=== PATIENT | male | born 1950 | race Caucasian/White ===

== ENCOUNTER 2020-01-03 00:21 | Outpatient (CLI) | payer MEDICARE, OTHER, SELFPAY ==
--- NOTE | 2020-01-03 | DI.NM_ITS ---
APPROVED REPORT Exam: Exercise Treadmill Patient Location: Out-Patient Room/Bed: Stress Nurse: Luna Dee RN BMI: 26.72 Baseline Rhythm: Sinus Bradycardia Indications: Chest pain, pt describes as twinges. He reports experiences chest pain twinges and acid reflux problems for years although symptoms have been worse lately. Pt is s/p 4 vessel CABG - 10 year s ago. Medical History Medical History: Angina, CAD s/p CABG, COPD, Depression, HTN, Hyperlipidemia Cardiac Medications: Aspirin. Atorvastatin. Losartan. Nitroglycerin. , Allergies: IVP dye. Augmentin. Marcodantin. Mirapex. Oxycodone. Terbidafine. Cardiac Risk Factors: HTN, Hyperlipidemia, FHX of CAD, Asthma, COPD Previous Cardiac Procedures: CABG Pretest Chest Pain Characteristics: Non-exertional Chest pain Exercise History: Physically active Lung Sounds: Clear to auscultation Heart Sounds: Regular Stress Test Details Test: Exercise stress testing was performed using a Medardo protocol. Nuclear Acquisition: Rest Tc-99m/Stress Tc-99m 1 day Rest Isotope: Tc-99m Sestamibi. Dose: 11.5 Date: 01/03/2020 Injection Time: 1045 Stress Isotope: Tc-99m Sestamibi. Dose: 36.0 Date: 01/03/2020 Injection Time: 1240 HR Resting HR Supine: 57 bpm Max Heart Rate (APMHR): 151 bpm Resting HR Standin bpm Target HR (85% APMHR): 128 bpm Max HR Achieved: 143 bpm % of APMHR: 94 Recovery HR: 90 bpm HR response to stress: Normal HR response to stress BP Resting BP Supine: 150/80 mmHg Resting BP Standin/80 mmHg Max BP: 180/82 mmHg Recovery BP: 150/80 mmHg BP response to stress: Normal blood pressure response to stress. ECG Resting ECG: Sinus Bradycardia Stress ECG: Sinus Tachycardia ST Change: No significant ST segment changes Arrhythmia: None Recovery ECG: Sinus Rhythm Recovery ST Change: No significant ST segment changes Recovery Arrhythmia: None Clinical Reason for Termination: Fatigue Stress Symptoms: General Fatigue Exercise duration: 10 min29 sec Highest Stage Reached: Stage 4: 4.2 mph at 16% grade. Exercise capacity: 12.63 METs Functional Capacity: Above average capacity Scale: Active Stress ECG Conclusion 1. Good exercise tolerance of 12.63 minutes, limited by fatigue 2. Normal hemodynamic response to exercise 3. Resting electrocardiogram is within normal limits. Electrocardiographically there was no evidence of myocardial ischemia at 94% of predicted heart rate for age 4. There were no dysrhythmias Protocol Used: Medardo Protocol Stress Test Summary STAGE Time (mins) Speed (mph) Grade (%) HR BP SYMPTOMS METS Supine 57 150/80 Standing 58 150/80 1 3 1.7 10 98 152/80 4.6 2 6 2.5 12 113 162/78 7 3 9 3.4 14 143 170/80 10.2 4 12 4.2 16 143 12.9 1 min recovery 118 180/82 3 min recovery 92 160/70 6 min recovery 90 150/80 MPI Conclusion Normal myocardial perfusion without evidence of ischemia or prior infarction Radiologist Interpretation Radiologist agrees with Project Drilling Engineer's Interpretation. Radiologist Interpretation by: Terri Black MD Interpretation Date/Time: 01/04/2020 09:53:44
== END 2020-01-03 00:41 ==
PROVIDERS: PCP Internal Medicine; Visit Provider Internal Medicine Interventional Cardiology
DX: R07.89 Other chest pain (principal); R00.1 Bradycardia, unspecified; Z95.1 Presence of aortocoronary bypass graft; I10 Essential (primary) hypertension; J44.9 Chronic obstructive pulmonary disease, unspecified
CPT/HCPCS: 78452; 93016; 93018; 93017

== ENCOUNTER 2021-09-23 02:44 | Outpatient (CLI) | payer MEDICARE, SELFPAY ==
[2021-09-23 11:29] LABS: Source Nasal/Nares
[2021-09-23 17:21] LABS: COVID-19 PCR Negative (Negative)
== END 2021-09-23 02:45 | disposition home or self-care (01) ==
LOC: LBO 02:44
PROVIDERS: PCP Internal Medicine; Visit Provider Ophthalmology
DX: Z20.822 Contact with and (suspected) exposure to COVID-19 (principal); Z01.818 Encounter for other preprocedural examination
CPT/HCPCS: 87635

== ENCOUNTER 2021-09-25 11:34 | Day surgery (SDC) | payer MEDICARE, SELFPAY ==
--- NOTE | 2021-09-25 07:50 | ANES.PREOP_ITS ---
General Info Height: 5 ft 9 in Weight: 80.739 kg Body Mass Index (BMI): 26.2 Surgical Procedure: Operation Date: 09/25/21 15:40 Proposed Procedures Side Surgeon p Cataract Extraction with IOL Implant Home Murillo MD Meds Allergies and Home Medications Allergies Allergy/AdvReac Type Severity Reaction Status Date / Time Iodinated Contrast Media Allergy Severe Other (See Unverified 09/23/21 11:39 Comment) terbinafine Allergy Intermediate Other (See Unverified 09/23/21 11:39 Comment) nitrofurantoin Allergy Unknown Other (See Unverified 09/23/21 11:39 [From Macrodantin] Comment) amoxicillin [From Augmentin] AdvReac Intermediate Other (See Unverified 09/23/21 11:39 Comment) clavulanic acid AdvReac Intermediate Other (See Unverified 09/23/21 11:39 [From Augmentin] Comment) oxycodone AdvReac Intermediate Other (See Unverified 09/23/21 11:39 Comment) pramipexole [From Mirapex] AdvReac Intermediate Dizziness/L Unverified 09/23/21 11:39 ighthead Home Medication Medication Instructions Recorded acetaminophen [Acetaminophen Extra 1,000 mg PO DAILY PRN 09/23/21 Strength] aspirin 81 mg PO DAILY 09/23/21 atorvastatin 80 mg PO DAILY 09/23/21 citalopram 20 mg PO DAILY 09/23/21 esomeprazole magnesium 20 mg PO BID 09/23/21 fluticasone propion-salmeterol 2 puff INHALATION BID 09/23/21 [Advair HFA] gabapentin 300 mg PO HS 09/23/21 levalbuterol tartrate 2 puff INHALATION Q4H PRN 09/23/21 loratadine 10 mg PO DAILY 09/23/21 losartan 25 mg PO DAILY 09/23/21 nitroglycerin 0.4 mg SUBLINGUAL DIRECTED 09/23/21 Current Visit Medications: Current Medications Generic Name Dose Route Start Last Admin Trade Name Freq PRN Reason Stop Dose Admin Acetaminophen 1,000 mg 09/25/21 06:00 Acetaminophen 500 Mg Tab PO Q4H PRN PRN Miscellaneous Medication 0 ml 09/25/21 06:00 Prednisolone 1%, Moxifloxacin 0.5%, Nepafenac 0.1% 5ml Btl OS DIRECTED [facility] Miscellaneous Medication 0 ml 09/25/21 06:00 Tropicam./Phenyleph. (1/2.5%) 5 Ml Btl OS DIRECTED BOBBY Tetracaine HCl 0 ml 09/25/21 06:00 Tetracaine 0.5% 4 Ml Btl OS DIRECTED [facility] PFSH Active Problems Active Problems: Problem Status Onset Code Posterior subcapsular age-related cataract of left eye H25.042 Nuclear sclerotic cataract of left eye H25.12 Medical History Medical History (Updated 09/24/21 @ 19:44 by Home Murillo MD) Anxiety BPH loc w urin obs/LUTS Chronic ischemic heart disease COPD (chronic obstructive pulmonary disease) GERD (gastroesophageal reflux disease) History of kidney stones HLD (hyperlipidemia) Hypertensive disorder Overweight RLS (restless legs syndrome) Snoring Surgical History Surgical History (Updated 09/23/21 @ 11:35 by Patrice Carter) Hx of CABG 11 years ago-F/U with tobacco stripper 01/2020 Tobacco Smoking/Tobacco Use Status: Never Alcohol Alcohol Intake: current Alcohol intake frequency: holidays/special occasions only Alcohol type: wine Substance Use Substance use: Never Substance use type: does not use Vital Signs and Lab Results Lab Results Blood Type / Crossmatch: No Data to Display Complete Blood Count: No Data to Display Complete Metabolic Panel: No Data to Display Liver Function Panel: No Data to Display Coagulation Panel: No Data to Display Cardiac Panel: No Data to Display Arterial Blood Gas: No Data to Display Venous Blood Gas: No Data to Display Pancreas Panel: No Data to Display Thyroid Panel: No Data to Display Infectious Disease: Coronavirus (COVID-19)(PCR) Negative (Negative) 09/23/21 10:04 09/23/21 Coronavirus 2019 Source Nasal/Nares 09/23/21 10:04 09/23/21 Blood Cultures: No Data to Display Toxicology Panel: No Data to Display Imaging and Studies Imaging and Studies Stress Test Summary: Stress ECG Conclusion 1. Good exercise tolerance of 12.63 minutes, limited by fatigue 2. Normal hemodynamic response to exercise 3. Resting electrocardiogram is within normal limits. Electrocardiographically there was no evidence of myocardial ischemia at 94% of predicted heart rate for age 4. There were no dysrhythmias Anesthesia Assessment and Plan Anesthesia History Personal History: No History of Anesthesia Complications Family History: No Family History of Anesthesia Complications Exercise Tolerance Exercise Tolerance: Metabolic Equivalents>4 Pertinent Negatives Pertinent Negatives: No Symptoms of GERD Cardiac & Pulmonary Exam Cardiac Exam: Normal S1/S2 Heart Sounds Pulmonary Exam: Clear Bilateral Breath Sounds Implantable Cardiac Device Does patient have a Pacemaker or an ICD?: No Airway Exam Known Difficult Airway: No Mallampati Class: 2 Mouth Opening: Normal (> 3cm) Thyromental Distance: Greater than 3 cm Neck Range of Motion: Full ROM Neck Circumference: Normal Teeth Condition: Normal Dentition ASA Classification ASA Score: ASA 3 Emergency Case?: No NPO Status NPO Status: NPO Clears >2 hours, Solids >8 hours Anesthesia Plan Resuscitation Status: Full Code Anesthesia Technique: MAC Anesthesia Airway Planned: Natural Airway Monitors Used: Standard Monitors
[2021-09-25 12:38] VITALS: BP 155/79; PULSE 54; RESP 16; TEMP 36.4; O2SAT 98
[2021-09-25] MEDS: Tropicam./Phenyleph. (1/2.5%) 5 ML BTL OS ×3 (12:45→12:55)
--- NOTE | 2021-09-25 13:31 | ANES.PREOP_ITS ---
General Info Date of Service Date Performed: 09/25/21 Height: 5 ft 9 in Weight: 82.6 kg Body Mass Index (BMI): 26.9 Surgical Procedure: Operation Date: 09/25/21 15:40 Proposed Procedures Side Surgeon p Cataract Extraction with IOL Implant Home Murillo MD Meds Allergies and Home Medications Allergies Allergy/AdvReac Type Severity Reaction Status Date / Time Iodinated Contrast Media Allergy Severe Other (See Unverified 09/23/21 11:39 Comment) terbinafine Allergy Intermediate Other (See Unverified 09/23/21 11:39 Comment) nitrofurantoin Allergy Unknown Other (See Unverified 09/23/21 11:39 [From Macrodantin] Comment) amoxicillin [From Augmentin] AdvReac Intermediate Other (See Unverified 09/23/21 11:39 Comment) clavulanic acid AdvReac Intermediate Other (See Unverified 09/23/21 11:39 [From Augmentin] Comment) oxycodone AdvReac Intermediate Other (See Unverified 09/23/21 11:39 Comment) pramipexole [From Mirapex] AdvReac Intermediate Dizziness/L Unverified 09/23/21 11:39 ighthead Home Medication Medication Instructions Recorded acetaminophen [Acetaminophen Extra 1,000 mg PO DAILY PRN 09/23/21 Strength] aspirin 81 mg PO DAILY 09/23/21 atorvastatin 80 mg PO DAILY 09/23/21 citalopram 20 mg PO DAILY 09/23/21 esomeprazole magnesium 20 mg PO BID 09/23/21 fluticasone propion-salmeterol 1 puff INHALATION QAM 09/23/21 [Advair HFA] gabapentin 300 mg PO HS 09/23/21 levalbuterol tartrate 2 puff INHALATION Q4H PRN 09/23/21 loratadine 10 mg PO DAILY 09/23/21 losartan 25 mg PO DAILY 09/23/21 nitroglycerin 0.4 mg SUBLINGUAL DIRECTED 09/23/21 Current Visit Medications: Current Medications Generic Name Dose Route Start Last Admin Trade Name Freq PRN Reason Stop Dose Admin Acetaminophen 1,000 mg 09/25/21 06:00 Acetaminophen 500 Mg Tab PO Q4H PRN PRN Miscellaneous Medication 0 ml 09/25/21 06:00 Prednisolone 1%, Moxifloxacin 0.5%, Nepafenac 0.1% 5ml Btl OS DIRECTED BOBBY Miscellaneous Medication 0 ml 09/25/21 06:00 09/25/21 12:55 Tropicam./Phenyleph. (1/2.5%) 5 Ml Btl OS 1 drp DIRECTED BOBBY Administration Tetracaine HCl 0 ml 09/25/21 06:00 Tetracaine 0.5% 4 Ml Btl OS DIRECTED BOBBY PFSH Active Problems Active Problems: Problem Status Onset Code Nuclear sclerotic cataract of left eye H25.12 Posterior subcapsular age-related cataract of left eye H25.042 Medical History Medical History Anxiety BPH loc w urin obs/LUTS Chronic ischemic heart disease COPD (chronic obstructive pulmonary disease) GERD (gastroesophageal reflux disease) History of kidney stones HLD (hyperlipidemia) Hypertensive disorder Overweight RLS (restless legs syndrome) Snoring Surgical History Surgical History (Updated 09/25/21 @ 12:31 by Mitchell Roberts) Hx of bilateral inguinal hernia repair Hx of CABG 11 years ago-F/U with director of fundraising 01/2020 Tobacco Smoking/Tobacco Use Status: Never Alcohol Alcohol Intake: current Alcohol intake frequency: holidays/special occasions only Alcohol type: wine Substance Use Substance use: Never Substance use type: does not use Vital Signs and Lab Results Vital Signs Most Recent Vital Signs in EMR: Most Recent Vital Signs Temp Pulse Resp BP Pulse Ox 36.4 C L 54 L 16 155/79 H 98 09/25/21 12:38 09/25/21 12:38 09/25/21 12:38 09/25/21 12:38 09/25/21 12:38 Lab Results Blood Type / Crossmatch: No Data to Display Complete Blood Count: No Data to Display Complete Metabolic Panel: No Data to Display Liver Function Panel: No Data to Display Coagulation Panel: No Data to Display Cardiac Panel: No Data to Display Arterial Blood Gas: No Data to Display Venous Blood Gas: No Data to Display Pancreas Panel: No Data to Display Thyroid Panel: No Data to Display Infectious Disease: Coronavirus (COVID-19)(PCR) Negative (Negative) 09/23/21 10:04 09/23/21 Coronavirus 2019 Source Nasal/Nares 09/23/21 10:04 09/23/21 Blood Cultures: No Data to Display Toxicology Panel: No Data to Display Imaging and Studies Imaging and Studies Stress Test Summary: Stress ECG Conclusion 1. Good exercise tolerance of 12.63 minutes, limited by fatigue 2. Normal hemodynamic response to exercise 3. Resting electrocardiogram is within normal limits. Electrocardiographically there was no evidence of myocardial ischemia at 94% of predicted heart rate for age 4. There were no dysrhythmias Anesthesia Assessment and Plan Anesthesia History Personal History: No History of Anesthesia Complications Family History: No Family History of Anesthesia Complications Exercise Tolerance Exercise Tolerance: Metabolic Equivalents>4 Pertinent Negatives Pertinent Negatives: No Symptoms of GERD, No Major Cardiovascular Symptoms or Complaints, No Major Pulmonary Symptoms or Complaints and No History of CVA/TIA Cardiac & Pulmonary Exam Cardiac Exam: Normal S1/S2 Heart Sounds Pulmonary Exam: Clear Bilateral Breath Sounds Implantable Cardiac Device Does patient have a Pacemaker or an ICD?: No Airway Exam Known Difficult Airway: No Mallampati Class: 2 Mouth Opening: Normal (> 3cm) Thyromental Distance: Greater than 3 cm Neck Range of Motion: Full ROM Neck Circumference: Normal Teeth Condition: Normal Dentition ASA Classification ASA Score: ASA 2 Emergency Case?: No NPO Status NPO Status: NPO Clears >2 hours, Solids >8 hours Anesthesia Plan Resuscitation Status: Full Code Anesthesia Technique: MAC Anesthesia Airway Planned: Natural Airway Monitors Used: Standard Monitors
[2021-09-25 13:34] VITALS: BMI 26.9
[2021-09-25] MEDS: Tetracaine 0.5% 4 ML BTL OS (13:40)
[2021-09-25] MEDS: Lidocaine 2% Jelly 6 ML SYR (13:41)
[2021-09-25] MEDS: Lidocaine 1% Pres-Free 5 ML VIAL (13:48)
[2021-09-25] MEDS: Balanced Salt Soln.-PLUS 500 ML BAG (13:52)
[2021-09-25] MEDS: Duovisc Viscoelastic System EACH 1 EACH (13:53)
[2021-09-25] MEDS: Povidone-Iodine Ophth 30 ML BTL (13:54)
[2021-09-25 14:10] VITALS: BP 138/85; PULSE 59; RESP 16; TEMP 36.5; O2SAT 98
--- NOTE | 2021-09-25 14:11 | W.PM.DSUDISC ---
Discharge Plan Disposition Patient Disposition: HOME Condition: Good Discharge Details Attending Provider: Home Murillo Primary Care Provider: Eladio Osorio Home Meds and New Rx's Prescriptions: No Action atorvastatin 80 mg tablet 80 mg PO DAILY RF: 0 acetaminophen [Acetaminophen Extra Strength] 500 mg Tablet 1,000 mg PO DAILY PRNRF: 0 aspirin 81 mg Capsule,Delayed Release(Dr/Ec) 81 mg PO DAILY RF: 0 citalopram 20 mg tablet 20 mg PO DAILY RF: 0 losartan 25 mg tablet 25 mg PO DAILY RF: 0 nitroglycerin 0.4 mg tablet, sublingual 0.4 mg sublingual DIRECTED RF: 0 gabapentin 300 mg capsule 300 mg PO HS RF: 0 loratadine 10 mg Tablet 10 mg PO DAILY RF: 0 esomeprazole magnesium 20 mg capsule,delayed release(DR/EC) 20 mg PO BID RF: 0 levalbuterol tartrate 45 mcg/actuation HFA aerosol inhaler 2 puff INHALATION Q4H PRNRF: 0 Advair HFA 230-21 mcg/actuation HFA aerosol inhaler 1 puff inhalation QAM RF: 0 Discharge Instructions Stand Alone Forms: Post-op Topical Cataract, Alisha Jo (DSU) Discharge Orders Discharge Orders: Discharge Order (Routine); Ordered 09/25/21 Ordered By: Home Mruillo DS: Diagnosis Discharge Diagnosis (1) Nuclear sclerotic cataract of left eye: Status: Resolved (2) Posterior subcapsular age-related cataract of left eye: Status: Resolved
--- NOTE | 2021-09-25 14:12 | W.PM.OP ---
Date of service: 09/25/21 Time of Service: 14:12 Operative Note Operative Note DATE OF PROCEDURE: 09/25/21 PRE-OP DIAGNOSIS: Nuclear/posterior subcapsular cataract, left eye POST-OP DIAGNOSIS: same PROCEDURE: Cataract extraction using phacoemulsification with intraocular lens implant, left eye SURGEON: Home Murillo ANESTHESIA TYPE: Local By Surgeon and MAC Refer to Anesthesia Record PATHOLOGY: none sent COMPLICATIONS: None Patient was transported to: same day Patient's condition: stable Implants: Andrew [employer] Andrew / [employer] Tecnis [id number] Indications: Progressive decreased vision due to cataract, left eye Procedure Description: CATARACT SURGERY OPERATIVE REPORT PREOPERATIVE DIAGNOSIS: 1. Nuclear/posterior subcapsular cataract, left eye POSTOPERATIVE DIAGNOSIS: Same OPERATION: 1. Cataract extraction using phacoemulsification with posterior chamber intraocular lens implant, left eye. IOL: IOL Sole Conforming Machine Operator/Model: Andrew & Andrew / CAROLYN Tecnis [id number] IOL Power: + 16.0 diopters IOL Serial Number: [id number] Optic Diameter: 6.0 mm Haptic/Overall Diameter: 13.0 mm PHACO INFO: Wilfrido Bravoaviaurion Vision System with OZil and Active Fluidics Cumulative Dispersed Energy (CDE): 14.21 seconds SURGEON: Home Murillo MD, VIKKI ANESTHESIA: Monitored A [facility] (MAC), with local sub-tenon's anesthetic infiltration COMPLICATIONS: None SPECIMENS: None INDICATIONS FOR PROCEDURE: The patient is a 70-year-old gentleman with history of diminished visual acuity in his left eye secondary to the development of nuclear/posterior subcapsular cataract. He is significantly symptomatic that he desires cataract surgery and attempt to improve and maximize his vision. The option of cataract surgery was offered to the patient and he wished to proceed. PROCEDURE: The correct surgical eye was identified and marked as the left eye and the pupil was dilated in the preoperative area using mydriatics and cycloplegics. The dilated pupil size was 8.0 mm. He elected to proceed without oral sedation.. The patient was brought to the operating room where cardiopulmonary monitoring was instituted and surgical time-out was performed, confirming the correct operative eye and IOL power. Topical anesthesia was administered and ophthalmic povidone-iodine 5% was instilled into the conjunctival fornices. Lidocaine gel was applied to the cornea and the kami-ocular area was prepped with Betadine 10% solution and draped in the usual sterile fashion for intraocular surgery, including an aperture drape. A Tegaderm transparent film dressing was cut in half and used to cover the lashes and lid margins. Care was taken to sequester the lashes and lid margins under the Tegaderm dressing. A lid speculum was placed between the lids of the operative eye and the Josefina-Tarun operating microscope was maneuvered into position. Lexy scissors were then used to make a conjunctival buttonhole approximately 6mm posterior to the limbus in the inferonasal quadrant. Blunt dissection was carried out to expose bare sclera, and a blunt-tipped sub-tenon?s anesthesia cannula was introduced and passed posteriorly along the globe where non-preserved plain lidocaine was injected into posterior sub-Tenon?s space. A sideport knife was used to make a paracentesis port superiorly/superiortemporally. Intraocular phenylephrine/lidocaine was injected int the anterior chamber.. The anterior chamber was filled with viscoelastic. A 2.4mm keratome knife was used to create a half-thickness groove at the limbus and then to construct a three-plane near-clear corneal tunnel extending 2.0mm into clear cornea at the 3:00 position. A flap was raised on the anterior capsule and capsulorhexis forceps were used to complete a continuous curvilinear capsulorhexis of 5.5 mm. Balanced salt solution was then used to perform cortical cleaving hydrodissection and nuclear hydrodelineation until the lens could be freely rotated within the capsular bag. The lens nucleus was then disassembled and removed within the capsular bag and iris plane using phacoemulsification. Residual cortical material was removed using the 45-degree angled silicone I/A tip with 0.3mm port. The posterior capsule was carefully polished to remove as much residual lens epithelial cells as safely possible. The capsular bag was then inflated and the anterior chamber deepened with viscoelastic. The lens implant described above was inserted into the capsular bag using the CAROLYN [place] Injector. A Kuglen hook was used to dial the IOL into position. Residual viscoelastic was then removed first from posterior to the IOL, then from the anterior chamber using the I/A handpiece. The lens implant was noted to center nicely within the capsular bag. The incisions were stromally hydrated, and the anterior chamber was reformed using BSS. Then 0.5cc of moxifloxacin 1.0mg/ml were injected into the capsular bag and anterior chamber. The incisions were checked with a Weck spear and found to be secure. Several drops of ophthalmic povidone-iodine 5% were then applied to the eye followed by two drops of Imprimis combination prednisolone/moxifloxacin/nepafenac solution. The drapes were removed and a clear plastic protective eye shield was placed over the eye. The patient was then returned to Same Day Surgery in stable condition.
--- NOTE | 2021-09-25 14:24 | W.ANESPOSTOP ---
Postoperative Evaluation Date, Time and Location Date Performed: 09/25/21 Time Performed: 14:24 Patient Location: Day Surgery Unit Vital Signs Most Recent Imported Vital Signs: Most Recent Vital Signs Temp Pulse Resp BP Pulse Ox 36.5 C 59 L 16 138/85 98 09/25/21 14:10 09/25/21 14:10 09/25/21 14:10 09/25/21 14:10 09/25/21 14:10 Pain Score Most Recent Pain Score: Most Recent Pain Score Pain Level 0 09/25/21 14:10 Assessment Mental Status: Awake (Alert & Oriented to Patient Baseline) Airway and Respiratory Function: Patent airway with normal (patient baseline) respiratory exam Cardiovascular Function: Hemodynamically Stable Hydration Status: Adequately Hydrated Nausea & Vomiting: No Nausea or Vomiting Pain: Pt. Denies Any Pain Peripheral Nerve Block: Patient did not receive a nerve block
== END 2021-09-25 14:30 | disposition home or self-care (01) ==
PROVIDERS: PCP Internal Medicine; Visit Provider Ophthalmology
PROC: (CPT 66984; principal; 2021-09-25 15:30)
DX: H25.12 Age-related nuclear cataract, left eye (principal); J44.9 Chronic obstructive pulmonary disease, unspecified; I10 Essential (primary) hypertension
CPT/HCPCS: 66984; V2632

== ENCOUNTER 2021-10-14 02:19 | Outpatient (CLI) | payer MEDICARE, SELFPAY ==
[2021-10-14 12:17] LABS: Source Nasal/Nares
[2021-10-14 14:35] LABS: COVID-19 PCR Negative (Negative)
== END 2021-10-14 02:20 | disposition home or self-care (01) ==
LOC: LBO 02:19
PROVIDERS: PCP Internal Medicine; Visit Provider Ophthalmology
DX: Z20.822 Contact with and (suspected) exposure to COVID-19 (principal); Z01.818 Encounter for other preprocedural examination
CPT/HCPCS: 87635

== ENCOUNTER 2021-10-16 07:30 | Day surgery (SDC) | payer MEDICARE, SELFPAY ==
[2021-10-16 07:53] VITALS: BP 143/79; PULSE 57; RESP 16; TEMP 36.7; O2SAT 98
[2021-10-16] MEDS: Tropicam./Phenyleph. (1/2.5%) 5 ML BTL OD ×3 (08:03→08:13)
--- NOTE | 2021-10-16 08:27 | ANES.PREOP_ITS ---
General Info Date of Service Date Performed: 10/16/21 Height: 5 ft 9 in Weight: 84.4 kg Body Mass Index (BMI): 27.4 Surgical Procedure: Operation Date: 10/16/21 09:40 Proposed Procedures Side Surgeon p Cataract Extraction with IOL Implant Right Home Murillo MD Meds Allergies and Home Medications Allergies Allergy/AdvReac Type Severity Reaction Status Date / Time Iodinated Contrast Media Allergy Severe Other (See Verified 10/16/21 07:48 Comment) terbinafine Allergy Intermediate Other (See Verified 10/16/21 07:48 Comment) nitrofurantoin Allergy Unknown Other (See Verified 10/16/21 07:48 [From Macrodantin] Comment) amoxicillin [From Augmentin] AdvReac Intermediate Other (See Verified 10/16/21 07:48 Comment) clavulanic acid AdvReac Intermediate Other (See Verified 10/16/21 07:48 [From Augmentin] Comment) oxycodone AdvReac Intermediate Other (See Verified 10/16/21 07:48 Comment) pramipexole [From Mirapex] AdvReac Intermediate Dizziness/L Verified 10/16/21 07:48 ighthead Home Medication Medication Instructions Recorded acetaminophen [Acetaminophen Extra 1,000 mg PO DAILY PRN 09/23/21 Strength] aspirin 81 mg PO DAILY 09/23/21 atorvastatin 80 mg PO DAILY 09/23/21 citalopram 20 mg PO DAILY 09/23/21 esomeprazole magnesium 20 mg PO BID 09/23/21 fluticasone propion-salmeterol 1 puff INHALATION QAM 09/23/21 [Advair HFA] gabapentin 300 mg PO HS 09/23/21 levalbuterol tartrate 2 puff INHALATION Q4H PRN 09/23/21 loratadine 10 mg PO DAILY 09/23/21 losartan 25 mg PO DAILY 09/23/21 nitroglycerin 0.4 mg SUBLINGUAL DIRECTED 09/23/21 Current Visit Medications: Current Medications Generic Name Dose Route Start Last Admin Trade Name Freq PRN Reason Stop Dose Admin Acetaminophen 1,000 mg 10/16/21 06:00 Acetaminophen 500 Mg Tab PO Q4H PRN PRN Miscellaneous Medication 0 ml 10/16/21 06:00 Prednisolone 1%, Moxifloxacin 0.5%, Nepafenac 0.1% 5ml Btl OD DIRECTED BOBBY Miscellaneous Medication 0 ml 10/16/21 06:00 10/16/21 08:13 Tropicam./Phenyleph. (1/2.5%) 5 Ml Btl OD 1 drp DIRECTED BOBBY Administration Tetracaine HCl 0 ml 10/16/21 06:00 Tetracaine 0.5% 4 Ml Btl OD DIRECTED BOBBY PFSH Active Problems Active Problems: Problem Status Onset Code Nuclear sclerotic cataract of left eye H25.12 Posterior subcapsular age-related cataract of left eye H25.042 Medical History Medical History Anxiety BPH loc w urin obs/LUTS Chronic ischemic heart disease COPD (chronic obstructive pulmonary disease) GERD (gastroesophageal reflux disease) History of kidney stones HLD (hyperlipidemia) Hypertensive disorder Overweight RLS (restless legs syndrome) Snoring Surgical History Surgical History Hx of bilateral inguinal hernia repair Hx of CABG 11 years ago-F/U 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 Tobacco Smoking/Tobacco Use Status: Never Alcohol Alcohol Intake: current Alcohol intake frequency: holidays/special occasions only Alcohol type: wine Substance Use Substance use: Never Substance use type: does not use Vital Signs and Lab Results Vital Signs Most Recent Vital Signs in EMR: Most Recent Vital Signs Temp Pulse Resp BP Pulse Ox 36.7 C 57 L 16 143/79 H 98 10/16/21 07:53 10/16/21 07:53 10/16/21 07:53 10/16/21 07:53 10/16/21 07:53 Lab Results Blood Type / Crossmatch: No Data to Display Complete Blood Count: No Data to Display Complete Metabolic Panel: No Data to Display Liver Function Panel: No Data to Display Coagulation Panel: No Data to Display Cardiac Panel: No Data to Display Arterial Blood Gas: No Data to Display Venous Blood Gas: No Data to Display Pancreas Panel: No Data to Display Thyroid Panel: No Data to Display Infectious Disease: Coronavirus (COVID-19)(PCR) Negative (Negative) 10/14/21 10:23 10/14/21 Coronavirus 2019 Source Nasal/Nares 10/14/21 10:23 10/14/21 Blood Cultures: No Data to Display Toxicology Panel: No Data to Display Imaging and Studies Imaging and Studies Stress Test Summary: 01/03/20: Stress ECG Conclusion 1. Good exercise tolerance of 12.63 minutes, limited by fatigue 2. Normal hemodynamic response to exercise 3. Resting electrocardiogram is within normal limits. Electrocardiographically there was no evidence of myocardial ischemia at 94% of predicted heart rate for age 4. There were no dysrhythmias Echocardiogram Summary: 08/11/2010: EF 70%, Normal Valves Cardiac Catheterization Summary: 08/10/2010[place] [facility] [place] Significant stenosis of LM, 2 VD LAD/RCA, normal EF: Had followup CABG Anesthesia Assessment and Plan Anesthesia History Personal History: No History of Anesthesia Complications Family History: No Family History of Anesthesia Complications Exercise Tolerance Exercise Tolerance: Metabolic Equivalents>4 Pertinent Negatives Pertinent Negatives: No Symptoms of GERD Cardiac & Pulmonary Exam Cardiac Exam: Normal S1/S2 Heart Sounds Pulmonary Exam: Clear Bilateral Breath Sounds Implantable Cardiac Device Does patient have a Pacemaker or an ICD?: No Airway Exam Known Difficult Airway: No Mallampati Class: 2 Mouth Opening: Normal (> 3cm) Thyromental Distance: Greater than 3 cm Neck Range of Motion: Full ROM Neck Circumference: Normal Teeth Condition: Normal Dentition ASA Classification ASA Score: ASA 3 Emergency Case?: No NPO Status NPO Status: NPO Clears >2 hours, Solids >8 hours Anesthesia Plan Resuscitation Status: Full Code Anesthesia Technique: MAC Anesthesia Airway Planned: Natural Airway Monitors Used: Standard Monitors
[2021-10-16 08:52] VITALS: BMI 27.4
[2021-10-16] MEDS: Tetracaine 0.5% 4 ML BTL OD (09:21)
[2021-10-16] MEDS: Balanced Salt Soln.-PLUS 500 ML BAG (09:21)
[2021-10-16] MEDS: Duovisc Viscoelastic System EACH 1 EACH (09:22)
[2021-10-16] MEDS: Lidocaine 2% Jelly 6 ML SYR (09:22)
[2021-10-16] MEDS: Povidone-Iodine Ophth 30 ML BTL (09:24)
[2021-10-16 09:38] VITALS: BP 172/88; PULSE 57; RESP 16; TEMP 36.3; O2SAT 98
--- NOTE | 2021-10-16 09:39 | W.PM.DSUDISC ---
Discharge Plan Disposition Patient Disposition: HOME Condition: Good Discharge Details Attending Provider: Home Murillo Primary Care Provider: Eladio Osorio Home Meds and New Rx's Prescriptions: No Action atorvastatin 80 mg tablet 80 mg PO DAILY RF: 0 acetaminophen [Acetaminophen Extra Strength] 500 mg Tablet 1,000 mg PO DAILY PRNRF: 0 aspirin 81 mg Capsule,Delayed Release(Dr/Ec) 81 mg PO DAILY RF: 0 citalopram 20 mg tablet 20 mg PO DAILY RF: 0 losartan 25 mg tablet 25 mg PO DAILY RF: 0 nitroglycerin 0.4 mg tablet, sublingual 0.4 mg sublingual DIRECTED RF: 0 gabapentin 300 mg capsule 300 mg PO HS RF: 0 loratadine 10 mg Tablet 10 mg PO DAILY RF: 0 esomeprazole magnesium 20 mg capsule,delayed release(DR/EC) 20 mg PO BID RF: 0 levalbuterol tartrate 45 mcg/actuation HFA aerosol inhaler 2 puff INHALATION Q4H PRNRF: 0 Advair HFA 230-21 mcg/actuation HFA aerosol inhaler 1 puff inhalation QAM RF: 0 Discharge Instructions Stand Alone Forms: Post-op Topical Cataract, Alisha Jo (DSU) Discharge Orders Discharge Orders: Discharge Order (Routine); Ordered 10/16/21 Ordered By: Home Murillo DS: Diagnosis Discharge Diagnosis (1) Nuclear sclerotic cataract of right eye: Status: Resolved (2) Posterior subcapsular age-related cataract, right eye: Status: Resolved
--- NOTE | 2021-10-16 09:39 | W.ANESPOSTOP ---
Postoperative Evaluation Date, Time and Location Date Performed: 10/16/21 Time Performed: 09:39 Patient Location: Day Surgery Unit Vital Signs Most Recent Imported Vital Signs: Most Recent Vital Signs Temp Pulse Resp BP Pulse Ox 36.7 C 57 L 16 143/79 H 98 10/16/21 07:53 10/16/21 07:53 10/16/21 07:53 10/16/21 07:53 10/16/21 07:53 Most Recent Manually Entered Vital Signs: Adult Blood Pressure: 172/88 Heart Rate: 55 Respirations: 10 Oxygen Saturation (%): 98 Temperature (C): 36.3 C Pain Score (0-10 Scale): 0 Pain Score Most Recent Pain Score: Most Recent Pain Score Pain Level 0 10/16/21 07:53 Assessment Mental Status: Awake (Alert & Oriented to Patient Baseline) Airway and Respiratory Function: Patent airway with normal (patient baseline) respiratory exam Cardiovascular Function: Hemodynamically Stable Hydration Status: Adequately Hydrated Nausea & Vomiting: No Nausea or Vomiting Pain: Pt. Denies Any Pain Peripheral Nerve Block: Patient did not receive a nerve block
[2021-10-16 09:40] VITALS: BP 172/88; PULSE 55; RESP 10; TEMPC 36.3; O2SAT 98
--- NOTE | 2021-10-16 09:40 | ROE_ITS ---
Date of service: 10/16/21 Time of Service: 09:40 Operative Note Operative Note DATE OF PROCEDURE: 10/16/21 PRE-OP DIAGNOSIS: Nuclear/posterior subcapsular cataract, right eye POST-OP DIAGNOSIS: same PROCEDURE: Cataract extraction using phacoemulsification with intraocular lens implant, right eye SURGEON: Home Murillo ANESTHESIA TYPE: Local By Surgeon and MAC Refer to Anesthesia Record ESTIMATED BLOOD LOSS: 0 PATHOLOGY: none sent COMPLICATIONS: None Patient was transported to: same day Patient's condition: stable Implants: Andrew & Andrew/CAROLYN Tecnis [id number] Indications: Progressive visual loss due to cataract, right eye Procedure Description: CATARACT SURGERY OPERATIVE REPORT PREOPERATIVE DIAGNOSIS: 1. Nuclear/posterior subcapsular cataract, right eye POSTOPERATIVE DIAGNOSIS: Same OPERATION: 1. Cataract extraction using phacoemulsification with posterior chamber intraocular lens implant, right eye. IOL: IOL Battery Plate Assembler/Model: Andrew & Andrew / CAROLYN Tecnis [id number] IOL Power: + 17.0 diopters IOL Serial Number: [id number] Optic Diameter: 6.0mm Haptic/Overall Diameter: 13.0mm PHACO INFO: Wilfrido Coin[employer]urion Vision System with OZil and Active Fluidics Cumulative Dispersed Energy (CDE): 12.17 seconds SURGEON: Home Murillo MD, VIKKI ANESTHESIA: Monitored Anesthesia Care (MAC), with local sub-tenon's anesthetic infiltration COMPLICATIONS: None SPECIMENS: None INDICATIONS FOR PROCEDURE: The patient is a 70-year-old gentleman with history of diminished visual acuity in both eyes secondary to the development of bilateral cataract. He has already undergone cataract surgery in the left eye and is doing well postoperatively. He now presents for cataract surgery in the right eye. PROCEDURE: The correct surgical eye was identified and marked as the right eye and the pupil was dilated in the preoperative area using mydriatics and cycloplegics. The dilated pupil size was 7.0 mm. Oral sedation was administered in the form of an Imprimis MKO Melt (midazolam 3mg/ketamine 25mg/ondansetron 2mg). The patient was brought to the operating room where cardiopulmonary monitoring was instituted and surgical time-out was performed, confirming the correct operative eye and IOL power. Topical anesthesia was administered and ophthalmic povidone-iodine 5% was instilled into the conjunctival fornices. Lidocaine gel was applied to the cornea and the kami-ocular area was prepped with Betadine 10% solution and draped in the usual sterile fashion for intraocular surgery, including an aperture drape. A Tegaderm transparent film dressing was cut in half and used to cover the lashes and lid margins. Care was taken to sequester the lashes and lid margins under the Tegaderm dressing. A lid speculum was placed between the lids of the operative eye and the Josefina-Tarun operating microscope was maneuv ered into position. Lexy scissors were then used to make a conjunctival buttonhole approximately 6mm posterior to the limbus in the inferonasal quadrant. Blunt dissection was carried out to expose bare sclera, and a blunt-tipped sub-tenon?s anesthesia cannula was introduced and passed posteriorly along the globe where non- preserved plain lidocaine was injected into posterior sub-Tenon?s space. A sideport knife was used to make a paracentesis port inferotemporally. Intraocular phenylephrine/lidocaine was injected into the anterior chamber. The anterior chamber was filled with viscoelastic. A 2.4mm keratome knife was used to create a half-thickness groove at the limbus and then to construct a three- plane near-clear corneal tunnel extending 2.0mm into clear cornea superiortemporally. A flap was raised on the anterior capsule and capsulorhexis forceps were used to complete a continuous curvilinear capsulorhexis of 5.5 mm. Balanced salt solution was then used to perform cortical cleaving hydrodissection and nuclear hydrodelineation until the lens could be freely rotated within the capsular bag. The lens nucleus was then disassembled and removed within the capsular bag and iris plane using phacoemulsification. Residual cortical material was removed using the I/A handpiece. The posterior capsule was carefully polished to remove as much residual lens epithelial cells as safely possible. The capsular bag was then inflated and the anterior chamber deepened with viscoelastic. The lens implant described above was inserted into the capsular bag using the CAROLYN [place] Injector. A Kuglen hook was used to dial the IOL into position. Residual viscoelastic was then removed first from posterior to the IOL, then from the anterior chamber using the I/A handpiece. The lens implant was noted to center nicely within the capsular bag. The incisions were stromally hydrated, and the anterior chamber was reformed using BSS. Then 0.5cc of moxifloxacin 1.0mg/ml were injected into the capsular bag and anterior chamber. The incisions were checked with a Weck spear and found to be secure. Several drops of ophthalmic povidone-iodine 5% were then applied to the eye followed by two drops of Imprimis combination prednisolone/moxifloxacin/nepafenac solution. The drapes were removed and a clear plastic protective eye shield was placed over the eye. The patient was then returned to Same Day Surgery in stable condition.
== END 2021-10-16 10:08 | disposition home or self-care (01) ==
PROVIDERS: PCP Internal Medicine; Visit Provider Ophthalmology
PROC: (CPT 66984; principal; 2021-10-16 09:30)
DX: H25.041 Posterior subcapsular polar age-related cataract, right eye (principal); J44.9 Chronic obstructive pulmonary disease, unspecified; K21.9 Gastro-esophageal reflux disease without esophagitis; I10 Essential (primary) hypertension
CPT/HCPCS: 66984; V2632

== ENCOUNTER → 2024-07-25 09:57 | Outpatient (BNVA) | payer MEDICARE, SELFPAY | PROVIDERS: PCP Family Medicine; Referring Provider Family Medicine; Visit Provider Podiatrist | DX: L60.3 Nail dystrophy (principal); B35.1 Tinea unguium | CPT/HCPCS: 99213 ==

== ENCOUNTER → 2024-12-26 10:19 | Outpatient (BNVA) | payer MEDICARE, SELFPAY | PROVIDERS: PCP Family Medicine; Referring Provider Family Medicine; Visit Provider Podiatrist | DX: L60.3 Nail dystrophy (principal); B35.1 Tinea unguium | CPT/HCPCS: 99213 ==